=== PATIENT | male | born 1995 | race Caucasian/White ===

== ENCOUNTER 2019-03-23 12:17 | Emergency (ER) | payer BC, SELFPAY ==
[2019-03-23 12:20] VITALS: BP 132/77; PULSE 80; RESP 16; TEMP 36.3; O2SAT 96
--- NOTE | 2019-03-23 12:34 | W.ED.GENAD ---
Discharge Plan Disposition Patient Disposition: HOME Condition: Good Discharge Details Chief Complaint: Sorethroat Clinical Impression: Acute pharyngitis Primary Care Provider: Nirali Sanchez ED Provider: Justus Torres Home Meds and New Rx's Prescriptions: No Action No Known Home Meds RF: 0 Discharge Instructions Instructions: Pharyngitis (ED) Additional Instructions: Please take 800 mg of ibuprofen every 6 hours and 1000 mg of Tylenol every 6 hours for control of your pain or fever. Your strep test was negative and your symptoms are likely secondary to a virus. If you notice any worsening of your symptoms, or any new symptoms such as vomiting, diarrhea, fever, chills, shortness of breath, chest pain, numbness, weakness, or fainting , please return immediately to the emergency department for reevaluation. Please follow up with your primary care provider as soon as possible for reassessment and reevaluation. As always, it was a pleasure participating in your medical care today. Stand Alone Forms: Work Release Referrals: Nirali Sanchez [Primary Care Provider] - Discharge Data Discharge Date/Time-TO BE ENTERED AT DEPARTURE: 03/23/19 12:46 Medical Decision Making This is a pleasant 23-year-old male who presents with sore throat, and fever at home. Have been present for the last 12 to 24 hours. Vital signs are notably reassuring here. No tachycardia or fever. Exam demonstrates no significant erythema in the posterior oropharynx. No tonsillar exudates. Strep test is negative. Signs and symptoms appear consistent with a mild viral upper respiratory infection. Recommend continue Tylenol, Motrin, fluids and rest. I have extensively reviewed the treatment plan and discharge instructions with the patient. I have addressed all patient concerns at this time. The patient was made aware of what symptoms to monitor for that would warrant a return to the emergency department. Discussed the plan with the patient, they demonstrate verbal understanding and agreement with our assessment and plan at this time. HPI General Date/Time Provider Initiated Documentation: 03/23/19 12:30. HPI Narrative: This is a 23-year-old male with no significant past medical history who presents for evaluation of sore throat. It is been present for the last day. He did have a mild fever at home of 101, he was given a gram of Tylenol and 800 of ibuprofen while at work, then instructed to go home and rest. He presents here for further evaluation and potential work note. He denies any headache, posterior neck pain, vomiting, diarrhea, or vision changes. He denies any difficulty swallowing. No other modifying factors. No other complaints at this time. He denies IV or illicit drug use, pertinent family history or recent surgical history. Related Data Home Medications Medication Instructions Recorded Confirmed Unknown [No Known Home Meds] 09/12/17 10/25/17 Allergies Allergy/AdvReac Type Severity Reaction Status Date / Time No Known Allergies Allergy Unverified 03/23/19 12:23 General Stated Complaint: Sorethroat SHON: 4 Review of Systems Review of Systems All systems reviewed & are unremarkable except as noted in HPI and below PFSH Surgical History Biopsy, Soft Tissue (12/26/17) Social History Smoking/Tobacco Use Status: Never Alcohol Intake: never Drug use: Never Do you feel safe in your relationship?: Yes Exam Narrative Exam Narrative: 1.Const: Well-nourished, Well-developed, appearing stated age 2.Eyes: PERRL, no conjunctival injection, and symmetrical lids. 3.ENT: Atraumatic external nose and ears. Moist MM. Neck: Symmetric, trachea midline, No thyromegaly. Posterior oropharynx demonstrates no significant erythema or edema. Tonsils are normal in size. No exudates. No tender anterior cervical lymphadenopathy. Patient demonstrates good movement of cervical neck. There is no nuchal rigidity, no nuchal tenderness. Patient is able to flex the neck without any difficulty or significant pain. Negative Kernig's and Brudzinski sign. 4.CVS: +S1/S2, No murmurs or gallops. Peripheral pulses 2+ and equal in all extremities. Brisk capillary refill in all extremities. 5.RESP: Unlabored respiratory effort. Clear to auscultation bilaterally. No wheezes rales or rhonchi 6.GI: Soft, Nontender/Nondistended, No hepatosplenomegaly. No guarding or rebound. 7.MSK: Normocephalic/Atraumatic, Extremities w/o deformity or ttp No cyanosis or clubbing, Normal movement of all extremities 8.Skin: Warm, Dry. No rashes or lesions. 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 Sensation grossly intact, no focal neurologic deficits. 10.Psych: (AAO) x3. Appropriate mood and affect Course Vital Signs Temperature 36.3 C L 03/23/19 12:20 Pulse 80 03/23/19 12:20 Respiratory Rate 16 03/23/19 12:20 Blood Pressure 132/77 03/23/19 12:20 Pulse Oximetry 96 03/23/19 12:20 Temperature 36.3 C L 03/23/19 12:20 Temperature Source Skin 03/23/19 12:20 Pulse 80 03/23/19 12:20 Respiratory Rate 16 03/23/19 12:20 Respiratory Effort Non-Labored 03/23/19 12:22 Blood Pressure 132/77 03/23/19 12:20 Pulse Oximetry 96 03/23/19 12:20 Oxygen Delivery Method Room Air 03/23/19 12:20 Oxygen Flow Rate 0 03/23/19 12:20 Pain Level 6 03/23/19 12:20
== END 2019-03-23 12:46 | disposition home or self-care (01) ==
LOC: ER 12:44
PROVIDERS: Emergency Provider Student in an Organized Health Care Education/Training Program; PCP Nurse Practitioner Family
DX: J02.9 Acute pharyngitis, unspecified (principal); R50.9 Fever, unspecified
CPT/HCPCS: 87880; 99282; 87081

== ENCOUNTER 2019-06-20 18:15 | Emergency (ER) | payer BC, SELFPAY ==
[2019-06-20 18:36] VITALS: BP 125/78; PULSE 78; RESP 15; TEMP 36.7; O2SAT 100
--- NOTE | 2019-06-20 18:47 | ED.GENADUL_ITS ---
Discharge Plan Disposition Patient Disposition: HOME Condition: Improving Discharge Details Chief Complaint: Urinary Clinical Impression: Penile lesion Primary Care Provider: Nirali Sanchez ED Provider: Solomon Nguyen Home Meds and New Rx's Prescriptions: Continued mirtazapine 7.5 mg Tablet 7.5 mg PO QHS RF: 0 Discharge Instructions Additional Instructions: Make an appointment on Saturday to follow-up with primary care in clinic for results of your testing today. Return for worsening discomfort, development of fever, or any other acute concerns Medical Decision Making 24-year-old male who was entered into a new sexual relationship and notes a small ulceration on the shaft of his penis. He does note that he has had intercourse multiple times per day and questions a friction burn. The area is on concerning in appearance and likely is a mild ulceration from friction. I do feel he will benefit from GC and Chlamydia testing. Urinalysis was sent. He will follow-up with PMD in clinic for results of test this week. Stable for discharge to home at this time. HPI General Mode of arrival: ambulatory . Date/Time Provider Initiated Documentation: 06/20/19 18:19 . Limitations to Documentation: no limitations . Information obtained by: patient . History of Present Illness 24 year old M presents to the emergency department with the chief complaint of Abrasion on right side shaft of penis, described as mild, Quality is described as dull and constant, and is localized to the genitals. Patient reports no r adiation. Patient started experiencing this day(s) and it has been constant. No relieving factors improve symptom(s), No exacerbating factors reported . Patient notes no other symptoms.. Patient did receive the following treatments prior to arrival, none Related Data Home Medications Medication Instructions Recorded Confirmed mirtazapine 7.5 mg PO QHS 06/20/19 06/20/19 Allergies Allergy/AdvReac Type Severity Reaction Status Date / Time No Known Allergies Allergy Unverified 06/20/19 18:41 General Stated Complaint: Urinary SHON: 4 Review of Systems Review of Systems 6 systems reviewed and otherwise negative [facility] Medical History Acne vulgaris Chronic anxiety Chronic depression IBS (irritable bowel syndrome) Insomnia Surgical History Biopsy, Soft Tissue (12/26/17) Social History Smoking/Tobacco Use Status: Current-Occasional Tobacco Type: cigarettes Alcohol Intake: current Alcohol Intake frequency: a few times a week Drug use: Never Do you feel safe at home: Yes Do you feel safe in your relationship?: Yes Exam Narrative Exam Narrative: GEN: awake, alert, oriented 3. Pleasant, well groomed, inter active. HEAD: Normocephalic, atraumatic ENT: Mucous membranes moist, oropharynx unremarkable, External ear exam unremarkable ABDOMEN: Soft, nontender, no mass. +Bowel sounds. Uncircumcised. There is a very discrete shallow ulceration measuring approximate 1 mm on the right distal portion of the patient's penile shaft. EXT: Full ROM, no edema, no rash Neuro: Grossly normal neurologic exam, conversant, interactive. Psych: Speech fluent, thoughts congruent, affect normal Course Vital Signs Temperature 36.7 C 06/20/19 18:36 Pulse 78 06/20/19 18:36 Respiratory Rate 15 06/20/19 18:36 Blood Pressure 125/78 06/20/19 18:36 Pulse Oximetry 100 06/20/19 18:36 Temperature 36.7 C 06/20/19 18:36 Temperature Source Temporal Artery Scan 06/20/19 18:36 Pulse 78 06/20/19 18:36 Respiratory Rate 15 06/20/19 18:36 Respiratory Effort Non-Labored 06/20/19 18:40 Blood Pressure 125/78 06/20/19 18:36 Blood Pressure Position Sitting 06/20/19 18:36 Pulse Oximetry 100 06/20/19 18:36 Oxygen Delivery Method Room Air 06/20/19 18:36 Oxygen Flow Rate 0 06/20/19 18:36 Pain Level 0 06/20/19 18:36
[2019-06-20 18:54] VITALS: BP 125/78; PULSE 78; RESP 15; TEMP 36.7; O2SAT 100
[2019-06-22 13:44] LABS: Chlamydia Result Negative; GC Result Negative
== END 2019-06-20 19:00 | disposition home or self-care (01) ==
LOC: ER 18:57
PROVIDERS: Emergency Provider Emergency Medicine; PCP Nurse Practitioner Family
DX: N48.5 Ulcer of penis (principal)
CPT/HCPCS: 87491; 87591; 99282

== ENCOUNTER 2019-11-19 01:18 | Emergency (ER) | payer BC, SELFPAY ==
[2019-11-19 01:21] VITALS: BP 149/82; PULSE 110; RESP 18; TEMP 38.8; O2SAT 96
--- NOTE | 2019-11-19 01:24 | ED.GENADUL_ITS ---
Discharge Plan Disposition Patient Disposition: HOME Condition: Good Discharge Details Chief Complaint: RespSymp Clinical Impression: Influenza-like illness Primary Care Provider: Nirali Sanchez ED Provider: Michi Maher Meds and New Rx's Prescriptions: New albuterol sulfate 90 mcg/actuation HFA aerosol inhaler 2 puff IH .q4-6h PRN (Reason: shortness of breath or wheezing) Qty: 8.5 RF: 0 Discharge Instructions Instructions: Influenza (ED), How to Use a Metered-Dose Inhaler and a Spacer (ED) Additional Instructions: Use inhaler with spacer every 4-6 hours for coughing spasm/shortness of breath. Rest, stay hydrated, use Tylenol or Motrin for fever and pain. Follow-up with primary care next week if not improving at all. Return to ED for mental status changes, worsening shortness of breath, chest pain, persistent vomiting, other concerns or problems. Referrals: Nirali Sanchez [Primary Care Provider] - Medical Decision Making Patient presenting with fever, cough, shortness of breath. Saturations are normal. Complains of unable to take deep breaths and episodes of spasmodic cough. Lungs sound relatively clear and there is no wheezing. Will try DuoNeb to see if makes his cough or sensation of not being able to take deep breaths better. Will give Tylenol for fever. Will obtain chest x-ray to evaluate for lobar pneumonia. Patient's constellation of symptoms consistent with viral illness and possibly influenza. However he is young and healthy and also outside the 48-hour window for treatment with Tamiflu. Patient sounds a lot better after DuoNeb with better air exchange. He feels better and his cough has essentially gone away. Chest x-ray per my review shows no infiltrates. Preliminary radiology read pending but presuming negative will go home with inhaler for bronchospasm and continue rest, hydration, Tylenol/Motrin for fever and pain. Follow-up with primary care next week if s till not improving at that point. Return to ED for mental status changes, difficulty breathing, chest pain, persistent vomiting, other concerns. HPI General Mode of arrival: ambulatory . Date/Time Provider Initiated Documentation: 11/19/19 01:23 . Limitations to Documentation: no limitations . Information obtained by: patient and RN notes reviewed . HPI Narrative: Patient presents to ED with complaint of fever, cough, shortness of breath. Patient reports being ill since last week. Symptoms have not gotten any better. If anything his cough is worse and now is having episodes of shortness of breath. At times he has posttussive emesis. He has a lot of body aches, nasal congestion. He is now bringing up green sputum. He stopped smoking back in September. Does not have a history of asthma. Feels like he cannot take a deep breath without coughing. Feels very weak and tired. Related Data Home Medications Medication Instructions Recorded Confirmed albuterol sulfate 2 puff IH .q4-6h PRN #8.5 gm 11/19/19 Previous Rx's Medication Instructions Recorded albuterol sulfate 2 puff IH .q4-6h PRN #8.5 gm 11/19/19 Allergies Allergy/AdvReac Type Severity Reaction Status Date / Time No Known Allergies Allergy Unverified 11/19/19 01:24 General Stated Complaint: Urinary SHON: 3 Review of Systems Narrative: As documented in HPI otherwise negative as below. Const: fever, chills, weakness Resp: cough, SOB; no pleuritic pain CV: no CP, diaphoresis, edema, syncope GI: occasional nausea/vomiting, no abdominal pain, diarrhea Neuro: no headache, numbness, focal weakness, confusion PFSH Medical History Acne vulgaris Chronic anxiety Chronic depression IBS (irritable bowel syndrome) Insomnia Surgical History Biopsy, Soft Tissue (12/26/17) Social History Smoking/Tobacco Use Status: Former Tobacco Use Quit Date: 10/14/19 Alcohol Intake: current Alcohol Intake frequency: a few times a week Alcohol type: beer and hard liquor Drug use: Never Substance use type: does not use Do you feel safe at home: Yes Do you feel safe in your relationship?: Yes Exam Narrative Exam Narrative: Vitals: Febrile. Elevated heart rate and blood pressure. Normal respiratory rate and room air pulse oximetry. Const: WDWN male in NAD. HEENT: NC/AT. Normal facial exam. TMs clear bilaterally. Oropharynx with some erythema but no ulcers or exudate. No edema. Eyes: Normal conjunctiva and sclera. Neck: Supple. Trachea midline. Lungs: Normal respiratory effort. Lungs for the most part are clear. Occasional rhonchi heard. Cor: RRR without murmur/gallop. Good radial pulses. GI: Soft. NT/ND. No guarding or rebound. Neuro: A+O x 3. Normal speech, mentation, gait. No gross motor or sensory deficit. Ext: No C/C/E. Skin: Warm and dry without rash. Course Vital Signs Vital signs: Vital Signs Temperature 101.8 F H 11/19/19 01:21 Pulse 110 H 11/19/19 01:21 Respiratory Rate 18 11/19/19 01:21 Blood Pressure 149/82 H 11/19/19 01:21 Pulse Oximetry 96 11/19/19 01:21 Temperature 101.8 F H 11/19/19 01:21 Temperature Source Skin 11/19/19 01:21 Pulse 110 H 11/19/19 01:21 Respiratory Rate 18 11/19/19 01:21 Blood Pressure 149/82 H 11/19/19 01:21 Pulse Oximetry 96 11/19/19 01:21 Pain Level 5 11/19/19 01:21
[2019-11-19] MEDS: Acetaminophen 325 MG TAB 650 MG PO (01:42)
[2019-11-19 01:43] VITALS: PULSE 110; RESP 1; RESP 18; O2SAT 96
[2019-11-19] MEDS: Albuterol/Ipratropium 3 ML UPD VIAL UPD (01:43)
--- NOTE | 2019-11-19 02:06 | DI.RAD_ITS ---
EXAM: XR CHEST 2V PA LATERAL CLINICAL HISTORY: cough, SOB. TECHNIQUE: 2D digital imaging was performed. COMPARISON: ABD FLAT UPRIGHT PA CHEST from 06/03/2014 FINDINGS: LUNGS: Clear. No pleural abnormality seen. HEART: Normal. MEDIASTINUM: Normal. OTHER FINDINGS:Normal. BONE:Normal. IMPRESSION: No acute pulmonary findings.
--- NOTE | 2019-11-19 02:13 | DI.VRAD_ITS ---
PROCEDURE INFORMATION: Exam: XR Chest, 2 Views Exam date and time: 11/19/2019 2:03 AM Age: 24 years old Clinical indication: Cough and shortness of breath TECHNIQUE: Imaging protocol: XR of the chest Views: 2 views. COMPARISON: CR ABD FLAT UPRIGHT PA CHEST 06/03/2014 11:57 PM FINDINGS: Lungs: Unremarkable. No consolidation. Pleural space: Unremarkable. No pleural effusion. No pneumothorax. Heart/Mediastinum: Unremarkable. No cardiomegaly. Bones/joints: Unremarkable. IMPRESSION: No acute findings. Dictated and Authenticated by: Bipin Arias MD. Ordering:YANIRA Borden MD
[2019-11-19] MEDS: Albuterol HFA 8 GM 60 PUFF INH IH (02:16)
[2019-11-19] MEDS: Inhaler, Assist Device 1 EACH MC (02:17)
== END 2019-11-19 02:25 | disposition home or self-care (01) ==
PROVIDERS: Emergency Provider Emergency Medicine; PCP Nurse Practitioner Family
DX: J11.1 Influenza due to unidentified influenza virus with other respiratory manifestations (principal)
CPT/HCPCS: 94640; 99283; 71046; J7620

== ENCOUNTER 2019-12-07 20:34 | Outpatient (REF) | payer BC, SELFPAY ==
[2019-12-09 10:16] LABS: Syphilis Serology (RPR) Negative (Negative)
[2019-12-09 11:45] LABS: Hepatitis B Surface Ag Negative (Negative)
[2019-12-09 11:48] LABS: Hepatitis C Ab w Rflx HCV PCR Negative (Negative)
[2019-12-09 11:51] LABS: HBs Antibody, Quant 3.4 mIU/mL (See Note); Hepatitis B Surface Ab Negative (See Note)
[2019-12-09 12:22] LABS: HIV-1/2 Ag & Ab Screen Negative (Negative)
[2019-12-09 13:02] LABS: HSV 1 DNA Result Negative (Negative)
[2019-12-09 14:49] LABS: HSV 2 DNA Result Positive (Negative); Varicella Zoster DNA Result Negative (Negative)
== END 2019-12-07 20:54 ==
LOC: NCHCN 20:34
PROVIDERS: PCP Nurse Practitioner Family; Visit Provider Nurse Practitioner Family
DX: N48.9 Disorder of penis, unspecified (principal); Z11.3 Encounter for screening for infections with a predominantly sexual mode of transmission; Z11.59 Encounter for screening for other viral diseases; Z11.4 Encounter for screening for human immunodeficiency virus [HIV]
CPT/HCPCS: 86706; 86803; 87340; 87389; 87529; 87798; 86592

== ENCOUNTER 2020-02-20 22:16 | Emergency (ER) | payer BC, SELFPAY ==
--- NOTE | 2020-02-20 22:15 | DI.CT_ITS ---
EXAM: CT ABDOMEN PELVIS W CLINICAL HISTORY: right sided abdominal pain TECHNIQUE: Imaging Protocol: Axial computed tomography images with coronal and sagittal reformatted images were created and reviewed CONTRAST MATERIAL: Intravenous: Omnipaque 350 Contrast volume:100 mL Oral: No COMPARISON: ABDOMEN ULTRASOUND (P) from 06/04/2014 FINDINGS: ABDOMEN: Lung Bases: Normal where visualized. Liver: Normal density. No measurable mass. Portal, Superior Mesenteric, and Splenic Veins: Unremarkable. Gallbladder and Biliary Tract: No radiodense calculus or dilation. Pancreas: Normal density, no abnormal calcifications or inflammatory process. Spleen: Normal. Adrenals: No masses seen. Kidneys: Normal size, contour and axis. No radiodense stones or obstructive uropathy. No masses seen. Abdominal Aorta: Abdominal portion non-dilated. Bowel: No obstruction or bowel wall thickening. Appendix is unremarkable. Peritoneal Cavity: No ascites, collection or mesenteric inflammatory response. Lymph Nodes: Within normal limits. Bones: Unremarkable. Soft Tissues: Unremarkable. PELVIS: Bladder: Symmetric distention, no gross wall thickening. Reproductive Organs: Unremarkable as visualized. Lymph Nodes: Within normal limits. Bones: Within normal limits. IMPRESSION: Unremarkable CT scan of the abdomen and pelvis. RADIATION DOSE DELIVERED: Total DLP DATA REPOSITORY: All CT scans at this facility are submitted to the National Radiology Data Registry (NRDR) Dose Index Registry (DIR) with the [employer] (ACR). RADIATION OPTIMIZATION: All CT scans at this facility use at least one of these dose optimization te chniques: automated exposure control; mA and/or kV adjustment per patient size (includes targeted exa ms where dose is matched to clinical indication); or iterative reconstruction.
[2020-02-20 22:21] VITALS: BP 137/110; PULSE 91; RESP 16; TEMP 36.9; O2SAT 96
--- NOTE | 2020-02-20 22:22 | ED.GENADUL_ITS ---
Discharge Plan Disposition Patient Disposition: HOME Condition: Stable Discharge Details Chief Complaint: Abd Prob Clinical Impression: Abdominal pain Primary Care Provider: None,None ED Provider: Antonio Ibarra Home Meds and New Rx's Prescriptions: New ondansetron 4 mg tablet,disintegrating 4 mg PO Q8H PRN (Reason: nausea and vomiting) Qty: 30 RF: 0 Discharge Instructions Instructions: Abdominal Pain (ED) Additional Instructions: your labs and cat scan did not show any concerning findings follow up with your primary care provider within a week to discuss seeing a gas troenterologist return to the Emergency Dept. if you have significant increase in pain, persistent vomit or difficulty breathing you can take 1000mg tylenol and 600mg ibuprofen every 6 hours for pain as needed Medical Decision Making 24 yo male with no chronic medical problems comes in with cc of 1 month of intermittent right upper abdominal pain and today acutely worsened and is all over the abdomen. Denies chest pain, dyspnea, fevers, prior surgeries. Has had n/v as well. former smoker, drinks socially per patient and denies drug use. He is in no distress on exam and has ruq and rlq tenderness without rebound and no guarding. No testicle pain or swelling. Could be pancreatitis vs ibs vs appendicitis vs cholecystitis, will obtain labs and ct imaging and monitor. labs imaging unremarkable pain significantly improved and no vomit here has mild right mid abdomen discomfort. Will d/c and have himf/u with pcp with return precautions . Suspect IBS Differential Diagnosis Differential Diagnosis: pancreatitis, appendicitis, ibs Imaging Data Radiologic Study: Attestation: I personally reviewed and interpreted this imaging study as follows: Imaging: CT Scan Radiologist's impression: no acute findings Lab Data Lab results reviewed: Yes I reviewed the patient's lab results. HPI General Mode of arrival: ambulatory . Date/Time Provider Initiated Documentation: 02/20/20 22:18 . Limitations to Documentation: no limitations . Information obtained by: patient . History of Present Illness 24 year old M presents to the emergency department with the chief complaint of abdominal pain, described as moderate, and is localized to the abdomen. Patient reports no radiation. Patient started experiencing this month(s) (1) and it has been other (worsening). No relieving factors improve symptom(s), No exacerbating factors reported . Patient did receive the following treatments prior to arrival, none Related Data Home Medications Medication Instructions Recorded Confirmed ondansetron 4 mg PO Q8H PRN #30 tab 02/21/20 Previous Rx's Medication Instructions Recorded ondansetron 4 mg PO Q8H PRN #30 tab 02/21/20 Allergies Allergy/AdvReac Type Severity Reaction Status Date / Time Anesthetics - Amide Type Allergy Severe Other (See Unverified 02/20/20 22:24 Comment) General SHON: 3 Review of Systems All systems reviewed & are unremarkable except as noted in HPI and below Constitutional Constitutional: Denies chills, Denies fever(s) and Denies weakness Cardiovascular Cardiovascular: Denies chest pain and Denies dyspnea Respiratory Respiratory: Denies cough and Denies dyspnea Gastrointestinal Gastrointestinal: Denies nausea and Denies vomiting Musculoskeletal Musculoskeletal: Denies joint swelling Neurologic Neurologic: Denies weakness [facility] Social History Smoking/Tobacco Use Status: Current-Occasional Tobacco Type: cigarettes Alcohol Intake: current Alcohol Intake frequency: a few times a week Alcohol type: beer and hard liquor Drug use: Never Substance use type: does not use Do you feel safe at home: Yes Do you feel safe in your relationship?: Yes Exam Const General: no acute distress Orientation: alert HENMT Head: normal to inspection Ears: external ears normal General nose exam: external nose normal Mouth: moist mucous membranes Eyes General: appearance normal, both eyes and all related structures Neck Neck: normal visual inspection Resp Effort & Inspection: normal respiratory effort and able to speak in complete sentences Cardio Rate: regular rate GI Palpation: soft and tender Skin General skin exam: no rashes or lesions noted Neuro General: patient alert and patient oriented x3 Extrem General: normal to inspection Psych Mental Status: mental status grossly normal
[2020-02-20 22:38] LABS: Bilirubin Negative (Negative); Blood Negative (Negative); Clarity Clear (Clear); Glucose Negative (Negative); Ketones Negative (Negative); Leukocyte Esterase Negative (Negative); Nitrite Negative (Negative); Specific Gravity 1.025 (1.005-1.025)
[2020-02-20] MEDS: Normal Saline Flush 10 ML SYR IVP (22:42)
[2020-02-20] MEDS: Normal Saline 1,000 ML 1000 ML IV (22:42)
[2020-02-20] MEDS: Ketorolac 15 MG/ML VIAL IVP (22:43)
[2020-02-20] MEDS: Ondansetron 4 MG/2 ML VIAL IVP (22:43)
[2020-02-20 22:51] LABS: Bacteria Negative HPF (Negative); C & S Indicated? No; Casts Negative LPF (Negative); Crystals Negative HPF (Negative); Epithelial Cells Negative HPF (Negative); Mucus Negative (Negative); Other Cells Negative (Negative); RBC 0-2 HPF (0-2)
[2020-02-20] MEDS: Omnipaque 350 MG/ML 100 ML BTL IJ (22:52)
[2020-02-20] MEDS: Normal Saline - Diluent 50 ML VIAL IV (22:52)
[2020-02-20 22:53] VITALS: BP 139/86
[2020-02-20 23:14] LABS: Abs Immature Grans 0.01 k/cumm (0.0-0.09); Absolute Basophil Count 0.02 k/cumm (0.0-0.2); Absolute Eosinophil Count 0.14 k/cumm (0.0-0.7); Absolute Lymphocyte Count 3.66 k/cumm (1.2-3.4); Absolute Monocyte Count 0.77 k/cumm (0.11-0.7); Absolute Neutrophil Count 2.93 k/cumm (1.2-6.7); Basophils % 0.3; Eosinophils % 1.9; HCT 42.5 % (40.0-50.0); HGB 14.8 g/dL (13.5-17.5); Immature Grans % 0.1 %; Lymphocytes % 48.6; Mean Corp. HGB Concentration 34.8 g/dL (32.0-36.0); Mean Corpuscular Hemoglobin 29.8 pg (27.0-33.0); Mean Corpuscular Volume 85.7 fL (80-95); Mean Platelet Volume 10.2 fL (8.0-11.0); Monocytes % 10.2; Neutrophils % 38.9; Platelet Count 276 x1000/uL (130-400); RBC 4.96 m/cumm (4.50-6.00); RBC Distribution Width 13.3 % (11.8-14.1); White Blood Cell Count 7.53 k/cumm (4.4-10.8)
--- NOTE | 2020-02-20 23:24 | DI.VRAD_ITS ---
PROCEDURE INFORMATION: Exam: CT Abdomen And Pelvis With Contrast Exam date and time: 02/20/2020 10:22 PM Age: 24 years old Clinical indication: Abdominal pain; Localized; Right upper quadrant (ruq); Patient HX: Ruq pain; Per PT: Right up under the ribs TECHNIQUE: Imaging protocol: Computed tomography of the abdomen and pelvis with intravenous contrast. COMPARISON: No relevant prior studies available. FINDINGS: Heart: The cardiac structures are normal. Lungs: The lungs are normal. Pleural space: There is no evidence of pneumothorax. There are no pleural effusions present. Liver: There are no focal liver lesions present. Gallbladder and bile ducts: The gallbladder is normal. There is no cholelitiasis, wall thickening or pericholecystic fluid to suggest cholecystitis. There is no evidence of intrahepatic or extrahepatic biliary ductal dilation. Pancreas: The pancreas is normal. Spleen: The spleen is normal. Adrenals: The adrenal glands are normal without evidence of mass or enlargement. The adrenal glands are normal. Kidneys and ureters: The kidneys are normal no evidence of nephrolithiasis or hydronephrosis. The ureters are normal caliber and follow a normal caliber and course. Stomach and bowel: The stomach is distended with ingested material. There is no evidence of intestinal obstruction. Appendix: A normal appendix is identified. There is no evidence of distention or periappendiceal inflammation to suggest appendicitis. Intraperitoneal space: There is no free intraperitoneal air. There is no evidence of free intraperitoneal or pelvic fluid. Vasculature: The aorta is unremarkable without evidence of significant atherosclerosis or aneurysmal disease. The peripheral arterial vascular system visualized is unremarkable. The portal venous system visualized is unremarkable. The peripheral venous vascular system visualized is unremarkable. Lymph nodes: There is no evidence of lymphadenopathy. Bladder: Unremarkable as visualized. Reproductive: Unremarkable as visualized. Bones/joints: The skeletal structures and soft tissues show no evidence of fracture or other acute processes. Soft tissues: The extra-abdominal soft tissues are normal. IMPRESSION: No definitive explanation for patient's current clinical presentation elicited on this study. Dictated and Authenticated by: Saúl Chau MD. Ordering:MARKOS Alvarez MD
[2020-02-20 23:28] LABS: PTT Activated 23.6 sec (21.0-31.4); Prothrombin Time 10.5 sec (9.3-11.0)
[2020-02-20 23:29] LABS: ALT 43 U/L (16-63); AST 31 U/L (15-37); Albumin 3.8 g/dL (3.4-5.0); Alkaline Phosphatase 28 U/L (46-116); Anion Gap 8.2 mmol/L (3-11); BUN 15 mg/dL (7-18); CO2 26.8 mmol/L (21.0-32.0); CREATININE 1.05 mg/dL (0.70-1.30); Calcium 8.7 mg/dL (8.5-10.1); Chloride 103 mmol/L (98-107); Glucose 106 mg/dL (74-106); Lipase 112 U/L (73-393); Potassium 3.5 mmol/L (3.5-5.1); Sodium 138 mmol/L (136-145); Total Protein 7.2 g/dL (6.4-8.2)
[2020-02-20 23:55] LABS: Bilirubin, Direct < 0.05 mg/dL (0.00-0.20)
[2020-02-20 23:56] LABS: Bilirubin, Total 0.2 mg/dL (0.2-1.0)
--- NOTE | 2020-02-21 00:09 | NUR.NOTE ---
Nursing Note: faxed referal to primary to follow up 02/21/2020
[2020-02-21 00:17] VITALS: BP 142/85; PULSE 88; RESP 16; O2SAT 97
[2020-02-21] MEDS: Ondansetron O.D.T. 4 MG TABEF, 3 TABS/BTL PO (00:18)
== END 2020-02-21 00:25 | disposition home or self-care (01) ==
PROVIDERS: Emergency Provider Emergency Medicine
DX: R10.11 Right upper quadrant pain (principal); R10.31 Right lower quadrant pain; R11.2 Nausea with vomiting, unspecified
CPT/HCPCS: 80053; 83690; 96361; 96374; 96375; 99285; 74177; 81003; 81015; 82248; 85025; 85610; 85730; 99284; J1885; J2405; J3490

== ENCOUNTER 2020-04-20 15:49 | Outpatient (REF) | payer BC, SELFPAY ==
[2020-04-24 09:21] LABS: SARS-CoV-2 RNA Undetected (Undetected); SARS-CoV-2 Specimen Source Nasopharynx
== END 2020-04-20 16:09 ==
LOC: NCHCN 15:49
PROVIDERS: Visit Provider Nurse Practitioner Family
DX: Z20.828 Contact with and (suspected) exposure to other viral communicable diseases (principal)
CPT/HCPCS: U0003

== ENCOUNTER 2020-10-04 21:56 | Emergency (ER) | payer BC, SELFPAY ==
--- NOTE | 2020-10-04 21:45 | DI.CT_ITS ---
EXAM: CT HEAD CERVICAL SPINE WO CLINICAL HISTORY: trauma, head injury, vomiting. TECHNIQUE: Imaging Protocol: Axial computed tomography images with coronal and sagittal reformatted images were created and reviewed COMPARISON: No exams were available for comparison FINDINGS: BRAIN: There are no skull fractures nor fluid in the visualized paranasal sinuses. There is no evidence of intracranial hemorrhage, mass effect, or shift of midline structures. There are no extra-axial fluid collections. The ventricles are not enlarged or shifted and there is no blo od within the ventricular system nor within the basal cisterns. CERVICAL SPINE: There is no evidence of fracture nor listhesis. No significant prevertebral soft tissue swelling. N o facet malalignment evident. No significant osseous lesions evident. IMPRESSION: No acute intracranial findings on this noninfused CT scan of the brain. No evidence of cervical spine fracture, malalignment, nor acute compromise of the cervical spinal can al. RADIATION DOSE DELIVERED: 1,384.56mGy.cm Total DLP DATA REPOSITORY: All CT scans at this facility are submitted to the National Radiology Data Registry (NRDR) Dose Index Registry (DIR) with the [employer] ([employer]). RADIATION OPTIMIZATION: All CT scans at this facility use at least one of these dose optimization te chniques: automated exposure control; mA and/or kV adjustment per patient size (includes targeted exa ms where dose is matched to clinical indication); or iterative reconstruction.
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
[2020-10-04 22:01] VITALS: BP 120/79; PULSE 85; RESP 16; TEMP 36.6; O2SAT 94
[2020-10-04] MEDS: Ondansetron 4 MG/2 ML VIAL IVP (22:02)
[2020-10-04] MEDS: Normal Saline 1,000 ML 1000 ML IV (22:14)
[2020-10-04] MEDS: Lidocaine/Epinephri/Tetracaine Topical Gel 3 ML (22:26)
--- NOTE | 2020-10-04 22:34 | DI.VRAD_ITS ---
PROCEDURE INFORMATION: Exam: CT Head Without Contrast Exam date and time: 10/04/2020 9:53 PM Age: 25 years old Clinical indication: Injury or trauma; Other: Unknown; Blunt trauma (contusions or hematomas); With loss of consciousness; Not specified; Injury date: 10/04/20; Injury details: Trauma, head injury, vomiting; Patient HX: PT unable to give HX TECHNIQUE: Imaging protocol: Computed tomography of the head without contrast. Radiation optimization: All CT scans at this facility use at least one of these dose optimization techniques: automated exposure control; mA and/or kV adjustment per patient size (includes targeted exams where dose is matched to clinical indication); or iterative reconstruction. COMPARISON: No relevant prior studies available. FINDINGS: Brain: Cerebral sulci show bilateral symmetry with no supratentorial mass or mass effect detected. Brainstem and cerebellum are normal in appearance. There is no evidence of acute infarct or intracranial hemorrhage. Cerebral ventricles: No ventriculomegaly. Bones/joints: The bony calvarium and skull base are intact and no fractures or other acute osseous lesions are detected. Paranasal sinuses: Mucosal disease is seen along the inferior margins of the left maxillary sinus and there is also focal opacification of the smaller left-sided sphenoid air cell with other paranasal sinuses clear throughout at the levels imaged. Mastoid air cells: Visualized mastoid air cells are normally pneumatized and well aerated. Soft tissues: Unremarkable. IMPRESSION: Unremarkable examination with no evidence of acute infarct, recent hemorrhage or hydrocephalus. No acute intracranial process is detected. PROCEDURE INFORMATION: Exam: CT Cervical Spine Without Contrast Exam date and time: 10/04/2020 9:53 PM Age: 25 years old Clinical indication: Injury or trauma; Other: Unknown; Blunt trauma (contusions or hematomas); With loss of consciousness; Not specified; Injury date: 10/04/20; Injury details: Trauma, head injury, vomiting; Patient HX: PT unable to give HX TECHNIQUE: Imaging protocol: Computed tomography images of the cervical spine without contrast. Radiation optimization: All CT scans at this facility use at least one of these dose optimization techniques: automated exposure control; mA and/or kV adjustment per patient size (includes targeted exams where dose is matched to clinical indication); or iterative reconstruction. COMPARISON: No relevant prior studies available. FINDINGS: Bones/joints: No acute fracture. Normal alignment. Discs/Spinal canal/Neural foramina: No significant disc bulges or protrusions seen. No severe spinal canal stenosis. No significant bony foraminal narrowing. Soft tissues: Unremarkable. IMPRESSION: No acute cervical fracture is detected. Dictated and Authenticated by: Carl Alcala MD. Ordering:CHERYL Lin MD
== END 2020-10-04 23:00 | disposition home or self-care (01) ==
PROVIDERS: Emergency Provider Nurse Practitioner Acute Care; PCP Nurse Practitioner Family
DX: S01.511A Laceration without foreign body of lip, initial encounter (principal); S09.90XA Unspecified injury of head, initial encounter; W01.198A Fall on same level from slipping, tripping and stumbling with subsequent striking against other object, initial encounter; F10.120 Alcohol abuse with intoxication, uncomplicated; R11.2 Nausea with vomiting, unspecified
CPT/HCPCS: 12011; 96361; 96374; 99284; 70450; 72125; J2405

== ENCOUNTER 2025-09-23 18:21 | Emergency (ER) | payer BC, SELFPAY ==
[2025-09-23 18:25] VITALS: BP 150/91; PULSE 77; RESP 18; O2SAT 99
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
[2025-09-23] MEDS: Acetaminophen 500 MG TAB 1000 MG PO (19:00)
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
== END 2025-09-23 20:05 | disposition home or self-care (01) ==
LOC: ER 19:11
PROVIDERS: Emergency Provider Emergency Medicine; PCP Nurse Practitioner Family
DX: W22.8XXA Striking against or struck by other objects, initial encounter; S62.346A Nondisplaced fracture of base of fifth metacarpal bone, right hand, initial encounter for closed fracture
CPT/HCPCS: 29125; 99283; 73130

== ENCOUNTER 2025-10-06 15:14 | Outpatient (CLI) | payer BC, SELFPAY ==
[2025-10-06 15:58] LABS: Abs Immature Grans 0.03 10^3/uL (0.0-0.06); HCT 45.9 % (40.0-50.0); HGB 15.5 g/dL (13.5-17.5); Immature Grans % 0.4 %; MCH 28.7 pg (27.0-33.0); MCHC 33.8 % (32.0-36.0); MCV 85 fL (80-95); MPV 10.2 fL (8.0-11.0); Platelet Count 253 10^3/uL (130-400); RBC 5.41 10^6/uL (4.36-5.78); RDW 12.2 % (11.8-14.1); RDW-SD 37.5 fL; WBC 8.00 10^3/uL (4.4-10.8)
[2025-10-06 17:43] LABS: ALT 23 U/L (10-49); AST 21 U/L (<34); Albumin 4.6 g/dL (3.2-5.0); Alkaline Phosphatase 31 U/L (46-116); Anion Gap 8.8 mmol/L (3-11); BUN 13 mg/dL (9-23); Bilirubin, Total 0.7 mg/dL (0.2-1.2); CO2 26.2 mmol/L (20.0-31.0); Calcium 8.7 mg/dL (8.3-10.6); Chloride 106 mmol/L (98-107); Glucose 96 mg/dL (74-106); Potassium 4.1 mmol/L (3.5-5.1); Sodium 141 mmol/L (136-145); Total Protein 7.5 g/dL (5.7-8.2)
== END 2025-10-06 15:15 | disposition home or self-care (01) ==
LOC: LOS 15:14
PROVIDERS: PCP Nurse Practitioner Family; Visit Provider Nurse Practitioner Family
DX: R10.9 Unspecified abdominal pain (principal)
CPT/HCPCS: 36415; 80053; 85025

== ENCOUNTER 2025-10-07 13:17 | Outpatient (CLI) | payer BC, SELFPAY ==
--- NOTE | 2025-10-07 10:00 | DI.RAD_ITS ---
Exam(s) XR HAND RT COMPLETE EXAM: XR HAND RT COMPLETE CLINICAL HISTORY: F/U R 5TH METACARPAL FX. TECHNIQUE: 2D digital imaging was performed. Three views. COMPARISON: CR,XR XR HAND RT COMPLETE from 09/23/2025 FINDINGS: BONES: Stable alignment of the fracture at the base of the 5th metacarpal. No new abnormalities.. No bony destructive lesion is seen. JOINTS: No dislocation present. SOFT TISSUE: Normal. IMPRESSION: Stable fracture alignment DATA REPOSITORY: RADIATION DOSE DELIVERED:
== END 2025-10-07 13:18 | disposition home or self-care (01) ==
LOC: DIORS 13:17
PROVIDERS: PCP Nurse Practitioner Family; Visit Provider Physician Assistant
DX: S62.306A Unspecified fracture of fifth metacarpal bone, right hand, initial encounter for closed fracture (principal)
CPT/HCPCS: 73130